=== PATIENT | male | born 1975 | race Hispanic/Latino ===

== ENCOUNTER 2017-06-19 00:48 | Emergency (ER) | payer MEDICARE ==
[2017-06-19 06:59] LABS: Basophils % (Auto) 0.3 % (0.0-1.8); Eosinophils # (Auto) 0.1 K/mm3 (0.0-0.4); Eosinophils % (Auto) 1.4 % (0.0-4.3); Hematocrit 43.8 % (35.5-45.6); Lymphocytes # (Auto) 2.1 K/mm3 (1.2-5.4); Mean Corpuscular HGB Conc 34 % (32-34); Mean Corpuscular Hemoglobin 35 pg (28-32); Mean Corpuscular Volume 101 fl (84-94); Monocytes # (Auto) 0.5 K/mm3 (0.0-0.8); Monocytes % (Auto) 12.3 % (0.0-7.3); Platelet Count 122 K/mm3 (140-440); Red Blood Count 4.33 M/mm3 (3.65-5.03); Red Cell Distribution Width 12.9 % (13.2-15.2)
[2017-06-19 07:03] LABS: BUN/Creatinine Ratio 16; Blood Urea Nitrogen 8 mg/dL (9-20); Calcium 9.1 mg/dL (8.4-10.2); Hemolysis Index 12
[2017-06-19 07:24] LABS: Bilirubin,Urine NEG (Negative); Blood,Urine NEG (Negative); Color,Urine Yellow (Yellow); Protein,Urine <15 mg/dL mg/dL (Negative); WBC,Urine < 1.0 /HPF (0.0-6.0)
[2017-06-19 07:35] LABS: Amphetamine Screen,Urine PRESUMPTIVE NEGATIVE; Benzodiazepines Screen,Urine PRESUMPTIVE NEGATIVE; Cannabinoid Screen,Urine PRESUMPTIVE NEGATIVE; Cocaine Screen,Urine PRESUMPTIVE NEGATIVE; Methadone Screen,Urine PRESUMPTIVE NEGATIVE; Opiate Screen,Urine PRESUMPTIVE NEGATIVE
--- NOTE | 2017-06-19 07:42 | Emergency Department Report ---
ED Psych HPI - General Chief Complaint: Psych Stated Complaint: MEDICAL CLEARANCE Time Seen by Provider: 06/19/17 07:28 Source: patient Mode of arrival: Ambulatory - History of Present Illness Initial Comments: Mr. hall is a 41-year-old man with several comorbidities. He has a history of schizoaffective disorder depression. Has a history of sleep apnea diabetes dyslipidemia "vascular disease". He has a tracheostomy in place. He has been in his normal state of health. He has had thoughts of hurting himself and others. No specific target for his homicidal ideation. He does not have any plans to harm himself or others. He has auditory hallucinations ("hearing doorbells). He has visual hallucinations, seeing shadows and people. He's had multiple psychiatric hospitalizations. Last year psychiatric hospitalization at [facility]. He's had insomnia. He denies any other physical complaints. MD Complaint: suicidal ideation, feels depressed -: Gradual Associated Psychiatric Symptoms: depression, suicidal ideation, homicidal ideation, racing thoughts, auditory hallucinations, visual hallucinations Quality: constant Improves With: none Worsens With: none Context: significant life stressor Associated Symptoms: denies other symptoms If Self Harm: admits thoughts of Details of Plan: No plan to harm himself or others but persistent thoughts of suicidal homicidal ideation - Related Data Allergies Allergy/AdvReac Type Severity Reaction Status Date / Time haloperidol [From Haldol] Allergy Unknown Verified 06/19/17 05:33 Penicillins Allergy Unknown Verified 06/19/17 05:34 sulfamethoxazole Allergy Itching Verified 06/19/17 05:33 [From Bactrim] trimethoprim [From Bactrim] Allergy Itching Verified 06/19/17 05:33 ED Review of Systems ROS: Stated complaint: MEDICAL CLEARANCE Other details as noted in HPI Comment: All other systems reviewed and negative Constitutional: denies: fever, malaise Respiratory: denies: cough Cardiovascular: denies: chest pain ED Past Medical Hx - Past Medical History Previous Medical History?: Yes Hx Diabetes: Yes (takes Metformin) Hx Deep Vein Thrombosis: Yes (left leg) Hx Pulmonary Embolism: Yes (2004, 2010) Hx Psychiatric Treatment: Yes (Schizoeffective, depression) Additional medical history: Has a trachesotomy, Right hip Fracture, pnuemonia, anal warts, rectal cyst, high triglycerides, Vascular Disease, Prostate Problems - Surgical History Past Surgical History?: Yes Additional Surgical History: Right hip surgery with clips and clamps - Social History Smoking Status: Current Every Day Smoker ED Physical Exam - General Limitations: No Limitations General appearance: alert, in no apparent distress - Head Head exam: Present: atraumatic, normocephalic - Eye Eye exam: Present: normal appearance - ENT ENT exam: Present: mucous membranes moist - Neck Neck exam: Present: normal inspection, other (tracheostomy in place). Absent: meningismus - Respiratory Respiratory exam: Present: normal lung sounds bilaterally. Absent: respiratory distress, wheezes, rales, rhonchi - Cardiovascular Cardiovascular Exam: Present: regular rate, normal rhythm, normal heart sounds. Absent: bradycardia, tachycardia, irregular rhythm, systolic murmur, diastolic murmur, rubs, gallop - GI/Abdominal GI/Abdominal exam: Present: soft, normal bowel sounds. Absent: distended, tenderness, guarding, rebound - Rectal Rectal exam: Present: deferred - Extremities Exam Extremities exam: Present: normal inspection - Back Exam Back exam: Present: normal inspection - Neurological Exam Neurological exam: Present: alert, oriented X3 - Psychiatric Psychiatric exam: Present: depressed, flat affect, homicidal ideation, suicidal ideation, other (calm cooperative insightful able to give full history) - Skin Skin exam: Present: warm, dry, intact, normal color. Absent: rash ED Course Vital Signs 06/19/17 06/19/17 05:10 05:51 Temperature 97.6 F 97.6 F Pulse Rate 69 75 Respiratory 18 18 Rate Blood Pressure 120/69 120/69 O2 Sat by Pulse 92 93 Oximetry ED Medical Decision Making - Lab Data Result diagrams: 06/19/17 06:06 06/19/17 06:06 - Medical Decision Making Mr. Parnell presents with hallucinations S HI. He stated that he was quite upset while he was waiting in the lobby. Our mental health senior business analyst gave him option to speak with our psychiatrist. He states that he is now calm. He just felt that he became upset. He does not plan to harm himself or others. He currently is not hearing any voices or having auditory hallucinations. He has access to a psychiatrist. He has access to his medications which he is taking regularly. I and the mental health senior business analyst agree that he is stable for discharge. He does not desire any further care. He is calm and cooperative. Critical care attestation.: If time is entered above; I have spent that time in minutes in the direct care of this critically ill patient, excluding procedure time. ED Disposition Clinical Impression: Schizo affective schizophrenia Disposition: DC-01 TO HOME OR SELFCARE Is pt being admited?: No Does the pt Need Aspirin: No Condition: Stable Instructions: Suicide Prevention for Adults (ED) Time of Disposition: 09:55
[2017-06-19 11:27] VITALS: BP 122/74
== END 2017-06-19 10:41 | disposition home or self-care (01) ==
LOC: ED 00:48
DX: F25.9 Schizoaffective disorder, unspecified (principal); F32.9 Major depressive disorder, single episode, unspecified; E11.9 Type 2 diabetes mellitus without complications; F17.200 Nicotine dependence, unspecified, uncomplicated; Z93.0 Tracheostomy status; Z86.718 Personal history of other venous thrombosis and embolism; Z86.711 Personal history of pulmonary embolism; Z79.84 Long term (current) use of oral hypoglycemic drugs; Z88.0 Allergy status to penicillin; Z88.2 Allergy status to sulfonamides; Z88.8 Allergy status to other drugs, medicaments and biological substances; Z79.899 Other long term (current) drug therapy
CPT/HCPCS: 36415; 80048; 80307; 81001; 85025; 99284; G0480; 80320

== ENCOUNTER 2017-08-17 16:54 | Emergency (ER) | payer MEDICARE | END 2017-08-17 17:30 | disposition left against medical advice (07) | LOC: ED 16:54 | DX: R06.02 Shortness of breath (principal); Z53.21 Procedure and treatment not carried out due to patient leaving prior to being seen by health care provider ==

== ENCOUNTER 2017-12-21 06:21 | Emergency (ER) | payer MEDICARE ==
[2017-12-21 06:26] VITALS: BP 135/76
[2017-12-21 06:54] LABS: Basophils % (Auto) 0.8 % (0.0-1.8); Eosinophils % (Auto) 1.2 % (0.0-4.3); Lymphocytes # (Auto) 1.8 K/mm3 (1.2-5.4); Lymphocytes % (Auto) 45.3 % (13.4-35.0); Mean Corpuscular HGB Conc 36 % (32-34); Mean Corpuscular Hemoglobin 36 pg (28-32); Mean Corpuscular Volume 100 fl (84-94); Monocytes # (Auto) 0.4 K/mm3 (0.0-0.8); Platelet Count 104 K/mm3 (140-440); Red Blood Count 4.71 M/mm3 (3.65-5.03); Red Cell Distribution Width 13.3 % (13.2-15.2)
--- NOTE | 2017-12-21 06:59 | XRay Report ---
FINAL REPORT EXAM: XR CHEST ROUTINE 2V HISTORY: Shortness of breath TECHNIQUE: A single view of the chest was submitted. FINDINGS: The heart size and vascularity appear normal. There are no infiltrates or effusions. There is minimal scarring left lung base. The tracheostomy tube is in good position. The skeletal structures do not show any acute changes. IMPRESSION: No acute cardiopulmonary process.
[2017-12-21 07:09] LABS: Hematocrit 47.3 % (35.5-45.6); Hemoglobin 16.9 gm/dl (11.8-15.2)
[2017-12-21 07:11] LABS: BUN/Creatinine Ratio 15; Blood Urea Nitrogen 6 mg/dL (9-20); Calcium 9.1 mg/dL (8.4-10.2); Hemolysis Index 7
== END 2017-12-21 07:30 | disposition left against medical advice (07) ==
LOC: ED 06:21
DX: R06.00 Dyspnea, unspecified (principal); Z53.21 Procedure and treatment not carried out due to patient leaving prior to being seen by health care provider
CPT/HCPCS: 36415; 71046; 80048; 84484; 85025; 93005; 93010

== ENCOUNTER 2018-04-27 20:53 | Emergency (ER) | payer MEDICARE ==
[2018-04-27 21:17] VITALS: BP 131/80
== END 2018-04-27 21:42 | disposition left against medical advice (07) ==
LOC: ED 20:53
DX: R06.00 Dyspnea, unspecified (principal); Z53.21 Procedure and treatment not carried out due to patient leaving prior to being seen by health care provider

== ENCOUNTER 2018-08-09 23:52 | Inpatient (IN) | payer MEDICARE ==
--- NOTE | 2018-08-10 00:30 | Emergency Department Report ---
ED General Adult HPI - General Chief complaint: Dyspnea/Respdistress Stated complaint: KARLY Time Seen by Provider: 08/10/18 00:28 Source: patient, EMS Mode of arrival: Stretcher Limitations: No Limitations - History of Present Illness Initial comments: 42 y.o. male with history of PTSD, schizoaffective disorder and asthma presents with complaint of shortness of breath. Patient states that for the past days been short of breath. Patient does admit to smoking in spite this. Patient upon EMS arrival. EMS was noted to have cyanotic lips and hyperventilating. Patient is placed on oxygen via rebreather. Patient complains of chest tightness as well with this. - Related Data Allergies Allergy/AdvReac Type Severity Reaction Status Date / Time haloperidol [From Haldol] Allergy Unknown Verified 06/19/17 05:33 Penicillins Allergy Unknown Verified 06/19/17 05:34 sulfamethoxazole Allergy Itching Verified 06/19/17 05:33 [From Bactrim] trimethoprim [From Bactrim] Allergy Itching Verified 06/19/17 05:33 ED Review of Systems ROS: Stated complaint: KARLY Other details as noted in HPI Constitutional: denies: chills, fever Eyes: denies: eye pain, eye discharge, vision change ENT: denies: ear pain, throat pain Respiratory: SOB at rest Cardiovascular: denies: chest pain, palpitations Endocrine: no symptoms reported Gastrointestinal: denies: abdominal pain, nausea, diarrhea Genitourinary: denies: urgency, dysuria Musculoskeletal: denies: back pain, joint swelling, arthralgia Skin: denies: rash, lesions Neurological: denies: headache, weakness, paresthesias Psychiatric: denies: anxiety, depression Hematological/Lymphatic: denies: easy bleeding, easy bruising ED Past Medical Hx - Past Medical History Previous Medical History?: Yes Hx Diabetes: Yes (takes Metformin) Hx Deep Vein Thrombosis: Yes (left leg) Hx Pulmonary Embolism: Yes (2004, 2010) Hx Psychiatric Treatment: Yes (Schizoeffective, depression) Hx Asthma: Yes Hx COPD: Yes Additional medical history: Has a trachesotomy, Right hip Fracture, pnuemonia, anal warts, rectal cyst, high triglycerides, Vascular Disease, Prostate Problems - Surgical History Past Surgical History?: Yes Additional Surgical History: Right hip surgery with clips and clamps. trach - Social History Smoking Status: Current Every Day Smoker Substance Use Type: Alcohol ED Physical Exam - General Limitations: No Limitations General appearance: alert, other (uncomfortable) - Head Head exam: Present: atraumatic, normocephalic - Eye Eye exam: Present: normal appearance - ENT ENT exam: Present: mucous membranes moist - Neck Neck exam: Present: normal inspection, other (tracheostomy present with no surrounding erythema or exudate) - Respiratory Respiratory exam: Present: respiratory distress, wheezes (faint wheezing appreciated in bases of lungs) - Cardiovascular Cardiovascular Exam: Present: regular rate, normal rhythm. Absent: systolic murmur, diastolic murmur, rubs, gallop - GI/Abdominal GI/Abdominal exam: Present: soft, normal bowel sounds - Rectal Rectal exam: Present: deferred - Extremities Exam Extremities exam: Present: normal inspection - Back Exam Back exam: Present: normal inspection - Neurological Exam Neurological exam: Present: alert, oriented X3 - Psychiatric Psychiatric exam: Present: normal affect, normal mood - Skin Skin exam: Present: warm, dry, intact, normal color. Absent: rash ED Course Vital Signs 08/10/18 08/10/18 08/10/18 00:04 00:15 00:23 Temperature 98.1 F 98.2 F Pulse Rate 71 75 71 Pulse Rate [ Anterior Bilateral Throughout] Respiratory 22 21 22 Rate Respiratory Rate [Anterior Bilateral Throughout] Blood Pressure 127/68 127/68 Blood Pressure 127/68 [Left] O2 Sat by Pulse 99 99 99 Oximetry 08/10/18 08/10/18 08/10/18 00:31 00:45 01:00 Temperature Pulse Rate 79 79 80 Pulse Rate [ Anterior Bilateral Throughout] Respiratory 20 21 21 Rate Respiratory Rate [Anterior Bilateral Throughout] Blood Pressure 127/68 127/68 127/68 Blood Pressure [Left] O2 Sat by Pulse 93 88 89 Oximetry 08/10/18 08/10/18 08/10/18 01:31 01:59 02:31 Temperature Pulse Rate 72 78 Pulse Rate [ 76 Anterior Bilateral Throughout] Respiratory 18 19 Rate Respiratory 16 Rate [Anterior Bilateral Throughout] Blood Pressure 134/83 134/83 Blood Pressure [Left] O2 Sat by Pulse 99 87 Oximetry 08/10/18 08/10/18 03:00 03:31 Temperature Pulse Rate 86 120 H Pulse Rate [ Anterior Bilateral Throughout] Respiratory 22 15 Rate Respiratory Rate [Anterior Bilateral Throughout] Blood Pressure 132/60 132/60 Blood Pressure [Left] O2 Sat by Pulse 87 91 Oximetry ED Medical Decision Making - Lab Data Result diagrams: 08/10/18 01:59 08/10/18 01:59 - EKG Data -: EKG Interpreted by Me EKG shows normal: sinus rhythm - EKG Data Interpretation: no acute changes - Medical Decision Making Patient received 10 mg of albuterol and 1 mg of Atrovent. Patient received Solu-Medrol and magnesium therapy while here in the emergency department. Patient noted be hypoxic was placed on 50% oxygen trach collar. Patient to be admitted to the hospitalist service for continued management and treatment. - Differential Diagnosis Asthma exacerbation; STEMI; NSTEMI; Pneumonia Critical Care Time: Yes Critical care time in (mins) excluding proc time.: 40 Critical care attestation.: If time is entered above; I have spent that time in minutes in the direct care of this critically ill patient, excluding procedure time. Critical care time includes time spent on direct bedside care, physician consultation, and frequent reassessments. ED Disposition Clinical Impression: Acute respiratory failure with hypoxia, Asthma exacerbation, Tracheostomy dependence Disposition: 09 OP ADMIT IP TO THIS HOSP Is pt being admited?: Yes Does the pt Need Aspirin: No Condition: Fair Referrals: PRIMARY CARE, [Primary Care Provider] - 3-5 Days Time of Disposition: 04:13
[2018-08-10] MEDS ORDERED: ATROVENT IH ONE (01:36)
[2018-08-10] MEDS ORDERED: PROVENTIL IH ONE (01:36)
[2018-08-10] MEDS ORDERED: MAGNESIUM SULFATE 2GM/50ML 2 GM/50 ML BAG IV ONE (01:37)
[2018-08-10] MEDS ORDERED: SOLU-Medrol IV ONE (01:37)
[2018-08-10 02:14] LABS: Hematocrit 47.6 % (35.5-45.6); Hemoglobin 16.8 gm/dl (11.8-15.2); Mean Corpuscular HGB Conc 35 % (32-34); Mean Corpuscular Volume 104 fl (84-94); Platelet Count 109 K/mm3 (140-440); Red Cell Distribution Width 12.8 % (13.2-15.2)
[2018-08-10 02:36] LABS: Alanine Aminotransferase 17 units/L (7-56); Albumin 3.8 g/dL (3.9-5); BUN/Creatinine Ratio 6; Blood Urea Nitrogen 3 mg/dL (9-20); Calcium 9.4 mg/dL (8.4-10.2); Hemolysis Index 40
--- NOTE | 2018-08-10 02:37 | XRay Report ---
PROCEDURE: XR CHEST 1V AP TECHNIQUE: Chest radiograph single view. HISTORY: chest pain COMPARISONS: December 21, 2017 . FINDINGS: Tracheostomy cannula in expected location.. Cardiomediastinal silhouette within normal limits. No evidence of airspace consolidation or pleural effusions. Pulmonary vasculature is within normal limits. IMPRESSION: Tracheostomy cannula in place. No radiographic evidence of acute disease. This document is electronically signed by Joshua Chirinos MD., Aug 10 2018 02:36:00 AM ET
[2018-08-10] MEDS ORDERED: TYLENOL PO PRN (05:15)
[2018-08-10] MEDS ORDERED: SODIUM CHLORIDE FLUSH SYRINGE 10 ML IV PRN (05:15)
[2018-08-10] MEDS ORDERED: ZOFRAN IV PRN (05:15)
[2018-08-10] MEDS ORDERED: ZITHROMAX 500 MG in NACL 0.9% 250ML 250 ML IV SCH (05:20)
--- NOTE | 2018-08-10 05:21 | History and Physical Report ---
History of Present Illness Date of examination: 08/10/18 History of present illness: 42-year-old man with history of schizoaffective disorder, depression, COPD, asthma, PE, DVT) emergency room with complaints of shortness of breath started yesterday. Also has a cough, trach aspirate is yellow, no fever or chills, Review of systems Constitutional: no weight loss, chills, fever Ears, eyes, nose, mouth and throat: no nasal congestion, no nasal discharge, no sinus pressure, no vision change, no red eye. Neck: No neck pain or rigidity. Cardiovascular: no palpitations, chest pain Respiratory:+ cough, shortness of breath Gastrointestinal: no hematochezia, abdominal pain Genitourinary : no frequency , no hematuria Musculoskeletal: no joint swelling or muscle ache Integumentary: no rash, no pruritis Neurological: no parathesias, no focal weakness Endocrine: no cold or heat intolerance, no polyuria or polydipsia Hematologic/Lymphatic: no easy bruising, no easy bleeding, no gland swelling Allergic/Immunologic: no urticaria, no angioedema. PAST MEDICAL HISTORY:schizoaffective disorder, depression, COPD, asthma, PE, DVT PAST SURGICAL HISTORY: hip SOCIAL HISTORY:+alcohol, no drugs, +tobacco FAMILY HISTORY: Hypertension Medications and Allergies Allergies Allergy/AdvReac Type Severity Reaction Status Date / Time haloperidol [From Haldol] Allergy Unknown Verified 06/19/17 05:33 Penicillins Allergy Unknown Verified 06/19/17 05:34 sulfamethoxazole Allergy Itching Verified 06/19/17 05:33 [From Bactrim] trimethoprim [From Bactrim] Allergy Itching Verified 06/19/17 05:33 Active Meds: Active Medications Acetaminophen (Tylenol) 650 mg PO Q4H PRN PRN Reason: Pain MILD(1-3)/Fever >100.5/DARBY Albuterol/Ipratropium (Duoneb *Not For Prn Use*) 1 ampul IH Q6HRT [facility] Enoxaparin Sodium (Lovenox) 40 mg SUB-Q QDAY@1000 JOSE L Ondansetron HCl (Zofran) 4 mg IV Q8H PRN PRN Reason: Nausea And Vomiting Sodium Chloride (Sodium Chloride Flush Syringe 10 Ml) 10 ml IV BID JOSE L Sodium Chloride (Sodium Chloride Flush Syringe 10 Ml) 10 ml IV PRN PRN PRN Reason: LINE FLUSH Exam - Physical Exam Narrative exam: General Apperance: The patient lying in bed, breathing comfortable , trach collar HEENT: Normocephalic, atraumatic. Pupils equally round and reactive to light, EOMI, no sclericterus or JVD or thyromegaly or nodule. , no carotid bruit, mucous membranes moist, no exudate or erythema Heart: S1-S2, regular is rhythm Lungs: Wheezing bilaterally, breathing comfortable Abdomen: Positive bowel sounds, soft, nontender, nondistended, no organomegaly Extremities: No edema cyanosis clubbing Skin: no rash, nodule, warm and dry Neuro: cranial nerves 2-12 intact, speech is fluent, motor/sensory intact - Constitutional Vitals: Temp Pulse Resp BP Pulse Ox 98.2 F 120 H 15 132/60 91 08/10/18 00:23 08/10/18 03:31 08/10/18 03:31 08/10/18 03:31 08/10/18 03:31 Results - Labs CBC & Chem 7: 08/10/18 01:59 08/10/18 01:59 Labs: Abnormal lab results 08/10/18 08/10/18 08/10/18 Range/Units 01:59 01:59 04:03 Hgb 16.8 H (11.8-15.2) gm/dl Hct 47.6 H (35.5-45.6) % MCV 104 H (84-94) fl MCH 37 H (28-32) pg MCHC 35 H (32-34) % RDW 12.8 L (13.2-15.2) % Plt Count 109 L (140-440) K/mm3 POC ABG pH 7.342 L (7.35-7.45) POC ABG pCO2 51.3 H (35-45) Sodium 133 L (137-145) mmol/L Chloride 93.5 L (98-107) mmol/L BUN 3 L (9-20) mg/dL Creatinine 0.5 L (0.8-1.5) mg/dL Glucose 123 H (75-100) mg/dL Total Protein 6.1 L (6.3-8.2) g/dL Albumin 3.8 L (3.9-5) g/dL - Imaging and Cardiology Chest x-ray: report reviewed Assessment and Plan Assessment Acute on Chronic respiratory failure COPD exacerbation schizoaffective disorder depression asthma PE/DVT Assessment Start high-dose steroids, nebulized treatment, IV situation Consult with her Continue Procrit outpatient medications Obtain tracheal aspirate, DVT prophylaxis
[2018-08-10] MEDS ORDERED: SOLU-Medrol ONE (06:58)
[2018-08-10] MEDS ORDERED: SOLU-Medrol IV SCH (07:00)
[2018-08-10 07:30] VITALS: BP 124/61
[2018-08-10] MEDS ORDERED: DUONEB *Not for PRN Use IH SCH (08:00)
[2018-08-10] MEDS ORDERED: LOVENOX SUB-Q SCH ×2 (10:00)
[2018-08-10] MEDS ORDERED: SODIUM CHLORIDE FLUSH SYRINGE 10 ML IV SCH (10:00)
--- NOTE | 2018-08-10 15:55 | Event Note ---
Date: 08/10/18 was notified ealier today that the patient left AMA, patient had left prior to me being notified. Nursing staff discussed the risk with the patient per the nursE
== END 2018-08-10 10:00 | disposition left against medical advice (07) | DRG 189 ==
LOC: ED 23:52 → 4A 08-10 06:29
PROVIDERS: ADMIT Internal Medicine; ATTEND Internal Medicine
PROC: 4A033R1 Measurement of Arterial Saturation, Peripheral, Percutaneous Approach (ICD-10-PCS; principal; 2018-08-10)
DX: J96.21 Acute and chronic respiratory failure with hypoxia (principal); J44.1 Chronic obstructive pulmonary disease with (acute) exacerbation; J45.901 Unspecified asthma with (acute) exacerbation; F17.200 Nicotine dependence, unspecified, uncomplicated; F25.9 Schizoaffective disorder, unspecified; Z53.21 Procedure and treatment not carried out due to patient leaving prior to being seen by health care provider; Z88.0 Allergy status to penicillin; Z88.2 Allergy status to sulfonamides; Z88.8 Allergy status to other drugs, medicaments and biological substances; Z86.718 Personal history of other venous thrombosis and embolism; Z79.01 Long term (current) use of anticoagulants; Z86.711 Personal history of pulmonary embolism; Z93.0 Tracheostomy status; Z82.49 Family history of ischemic heart disease and other diseases of the circulatory system
CPT/HCPCS: 36415; 36600; 71045; 80053; 82803; 82962; 85027; 93005; 93010; 94760; G0378; J0456; J1650; J2930; J3475; J7050

== ENCOUNTER 2020-01-12 17:55 | Emergency (ER) | payer MEDICARE | END 2020-01-12 18:57 | disposition left against medical advice (07) | LOC: ED 17:55 | DX: R06.02 Shortness of breath (principal); Z53.21 Procedure and treatment not carried out due to patient leaving prior to being seen by health care provider ==

== ENCOUNTER 2020-07-16 21:49 | Emergency (ER) | payer MEDICARE ==
[2020-07-16 22:01] VITALS: BP 123/79
--- NOTE | 2020-07-16 22:01 | Event Note ---
ED Screening Note Date of service: 07/16/20 Time: 21:59 ED Screening Note: 44-year-old male patient with history of diabetes, tobacco use, and obstructive sleep apnea presents to the emergency department with complaints of chest pain for 3 weeks and palpitations starting today. Patient states he used his pulse oximeter at home to measure his heart rate, which was above 100. No history of prior [place] or stroke. Patient is not anticoagulated. General: Awake, appropriately interactive. Anxious. Neck: Supple. Full range of motion intact. Cardiovascular: Normal peripheral perfusion. Pulmonary: No respiratory distress. Patient is speaking normally without use of accessory muscles. Skin: No apparent rashes or lesions. Neurological: No facial asymmetry. Speech is clear. Follows commands. Patient is alert and oriented. Musculoskeletal: Moves all four extremities spontaneously with normal range of motion. Psych: Cooperative. Appropriate mood and affect. I have greeted and performed a focused rapid initial assessment of this patient. A comprehensive ED assessment and evaluation of the patient, analysis of all test results, and completion of the medical decision-making process will be conducted by additional ED providers. This initial assessment/diagnostic orders/clinical plan/treatment(s) is/are subject to change based on patients health status, clinical progression and re-assessment. Further treatment and workup at subsequent clinical provider's discretion. Patient/guardian urged not to elope from the ED as their condition may be serious if not clinically assessed and managed.
[2020-07-16 22:24] LABS: Basophils % (Auto) 0.3 % (0.0-1.8); Eosinophils # (Auto) 0.1 K/mm3 (0.0-0.4); Eosinophils % (Auto) 1.5 % (0.0-4.3); Lymphocytes # (Auto) 2.5 K/mm3 (1.2-5.4); Mean Corpuscular HGB Conc 37 % (32-34); Mean Corpuscular Volume 97 fl (84-94); Monocytes # (Auto) 0.5 K/mm3 (0.0-0.8); Monocytes % (Auto) 8.2 % (0.0-7.3); Platelet Count 145 K/mm3 (140-440); Red Blood Count 4.73 M/mm3 (3.65-5.03); Red Cell Distribution Width 12.2 % (13.2-15.2)
[2020-07-16 22:25] LABS: Hematocrit 45.7 % (35.5-45.6); Hemoglobin 16.8 gm/dl (11.8-15.2)
[2020-07-16 22:36] LABS: INR 1.12 (0.87-1.13)
[2020-07-16 22:37] LABS: Partial Thromboplastin Time 52.1 Sec. (24.2-36.6)
--- NOTE | 2020-07-16 22:42 | XRay Report ---
CHEST 2 VIEWS INDICATION: chest pain/palpitations. COMPARISON: Chest x-ray from 08/11/2018 FINDINGS: SUPPORT DEVICES: Tracheostomy tube in the midline. HEART: Within normal limits. LUNGS/PLEURA: No acute air space or interstitial disease. No pneumothorax. ADDITIONAL FINDINGS: None. IMPRESSION: 1. No acute findings. Signer Name: Elio Alfredo MD Signed: 07/16/2020 10:37 PM Workstation Name: [id number]
[2020-07-16 22:49] LABS: Alanine Aminotransferase 26 units/L (7-56); Albumin 4.7 g/dL (3.9-5); BUN/Creatinine Ratio 15; Blood Urea Nitrogen 9 mg/dL (9-20); Calcium 9.9 mg/dL (8.4-10.2); Hemolysis Index 9
--- NOTE | 2020-07-17 09:38 | Electrocardiograph Report ---
[facility] Test Date: 2020-07-16 Test Time: 22:00:58 Pat Name: NIKHIL TORRES Department: Room: Gender: M [employer] Machine: LILLY : 1975 Requested By: JOCELYN STODDARD Order Number: [id number] Reading MD: Fracisco Calvillo Measurements Intervals [place] Rate: 69 P: -32 HI: 173 QRS: -34 QRSD: 97 T: 46 QT: 363 QTc: 390 Interpretive Statements Sinus rhythm Left axis deviation Anterior infarct, old No previous ECG available for comparison Electronically Signed On 07-17-2020 9:38:20 EDT by Fracisco Calvillo
== END 2020-07-17 03:55 | disposition left against medical advice (07) ==
LOC: ED 21:49
DX: R07.9 Chest pain, unspecified (principal); Z53.21 Procedure and treatment not carried out due to patient leaving prior to being seen by health care provider
CPT/HCPCS: 36415; 71046; 80053; 83735; 84484; 85025; 85610; 85730; 93005

== ENCOUNTER 2020-07-17 06:56 | Emergency (ER) | payer MEDICARE ==
[2020-07-17 07:15] VITALS: BP 141/76
== END 2020-07-17 08:22 | disposition left against medical advice (07) ==
LOC: ED 06:56
DX: F41.9 Anxiety disorder, unspecified (principal); Z53.21 Procedure and treatment not carried out due to patient leaving prior to being seen by health care provider